=== PATIENT | female | born 1945 | race Caucasian/White ===

== ENCOUNTER → 2018-02-09 | Outpatient (CLI) | payer MEDICARE ==
[~2018-02-09] MED LIST: CELEBREX100 MG PO; HYZAAR 50-12.51 EACH PO; ZOCOR80 MG PO
--- NOTE | 2018-02-09 09:38 | Diagnostic Imaging Report ---
MRI of the right forefoot without contrast. History: Peroneal tendon rupture. Foot pain. Decreased range of motion. Pain not responding to conservative management. Technique: Multiplanar multisequence MRI of the foot without contrast Comparison: None Findings: There is no acute fracture, subluxation or avascular necrosis. Mild scattered degenerative changes are seen. There is a bipartite tibial sesamoid bone at the first metatarsophalangeal joint with mild bone marrow edema which is likely stress related. No ligamentous or tendon tear is seen. The visualized neurovascular bundles are intact. The visualized muscles are normal in size, signal intensity and morphology. The visualized portions of the peroneal tendons are intact. There is a small tibiotalar joint effusion and mild synovitis. Impression: The visualized portions of the peroneal tendons are intact. If indicated MRI of the ankle may be of benefit. Signed by: Dr. Shreyas Castillo M.D. on 02/09/2018 9:34 AM
== END ==
LOC: MRI 07:20
PROVIDERS: ATTEND Podiatrist Foot & Ankle Surgery
DX: M76.71 Peroneal tendinitis, right leg (principal); M79.671 Pain in right foot; M79.89 Other specified soft tissue disorders

== ENCOUNTER → 2019-03-01 | Outpatient (CLI) | payer MEDICARE ==
--- NOTE | 2019-03-02 10:44 | Diagnostic Imaging Report ---
TECHNIQUE: Magnetic resonance imaging of the RIGHT HIP was performed WITHOUT injected contrast. HISTORY: Pain COMPARISON: None available. FINDINGS: Bone: No focal or infiltrative bone marrow replacing abnormality. No osteonecrosis or acute fracture. Femoroacetabular Joint: Acetabular labrum: Degenerative tearing of the anterosuperior labrum. Articular Cartilage: Partial-thickness cartilage loss Muscle and tendons: Insertional tendinopathy of the right gluteal tendons with partial tearing of the minimus and medius. Hamstring origins intact. Iliopsoas intact. Soft tissues: Ischiofemoral space preserved. IMPRESSION: No fracture. 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 Insertional tendinopathy of the right gluteal tendons on the greater trochanter with partial tearing of the minimus and medius. Signed by: Dr. Dar Shook M.D. on 03/02/2019 10:41 AM
== END ==
LOC: MRI 14:13
PROVIDERS: ATTEND Family Medicine
DX: M25.551 Pain in right hip (principal)

== ENCOUNTER → 2021-01-01 | Day surgery (SDC) | payer MEDICARE ==
[~2021-01-01] MED LIST changes: +BUPIVACAINE 0.25% 30ML SDV ONE; +ESTRADIOL1 MG PO; +LIDOCAINE 1% W/EPINEPHRINE 20 ML VIAL ONE; +NEOSTIGMINE 1 MG/ML 10ML VIAL ONE
[2021-01-01 09:43] LABS: BASOPHILS # (AUTO) 0.1 (0.0-0.1); BASOPHILS % 0.6 % (0.0-1.0); EOSINOPHILS # (AUTO) 0.2 (0.0-0.4); EOSINOPHILS % 2.4 % (0.0-6.0); HEMATOCRIT 39.8 % (34.2-44.1); HEMOGLOBIN 13.1 g/dL (12.0-16.0); LYMPHOCYTES # (AUTO) 2.1 (1.0-3.2); LYMPHOCYTES % 20.9 % (18.0-39.1); MEAN CORPUSCULAR HEMOGLOBIN 29.8 pg (28-32); MEAN CORPUSCULAR HGB CONC 32.9 g/dL (31-35); MEAN CORPUSCULAR VOLUME 90.7 fL (81-99); MONOCYTES # (AUTO) 0.7 (0.2-0.8); MONOCYTES % 6.5 % (4.4-11.3); NEUTROPHILS % 69.3 % (38.7-80.0); PLATELET COUNT 353 x10e3/uL (140-360); RED BLOOD COUNT 4.39 x10e6/uL (3.6-5.1); RED CELL DISTRIBUTION WIDTH 12.7 % (11.7-14.4)
[2021-01-01 10:06] LABS: ALBUMIN 3.8 g/dL (3.5-5.0); ALBUMIN/GLOBULIN RATIO 1.2 (0.8-2.0); CALCIUM 9.5 mg/dL (8.4-10.2); CREATININE, SERUM 0.7 mg/dL (0.57-1.11)
[2021-01-01 15:00] VITALS: BP 132/64
== END | disposition home or self-care (01) ==
LOC: OR 09:22
PROVIDERS: ATTEND Surgery
DX: S90.851A Superficial foreign body, right foot, initial encounter (principal); I10 Essential (primary) hypertension; E78.5 Hyperlipidemia, unspecified; X58.XXXA Exposure to other specified factors, initial encounter; Z20.822 Contact with and (suspected) exposure to COVID-19
CPT/HCPCS: 28190; 36415; 71046; 80053; 85025; 93005; J2710; U0002